=== PATIENT | male | born 1985 | race African-American/Black ===

== ENCOUNTER 2017-03-18 06:52 | Day surgery (SDC) | payer MEDICAID ==
[~2017-03-18] VITALS: Ht 180.3 cm; Wt 99.8 kg
[2017-03-18] MEDS ORDERED: MIDAZOLAM 2 MG/2 ML VIAL ONE (10:44)
[2017-03-18] MEDS ORDERED: LIDOCAINE 2% 100 MG/5 ML UJET TP ONE (10:44)
[2017-03-18] MEDS ORDERED: fentaNYL 0.05 MG/ML VIAL ONE (10:44)
[2017-03-18] MEDS ORDERED: FAMO-90 PO (11:11)
[2017-03-18] MEDS ORDERED: VITA400T14 GT (11:11)
[2017-03-18] MEDS ORDERED: DIT5 PO (11:11)
[2017-03-18] MEDS ORDERED: ASPI81CT89 PO (11:11)
[2017-03-18] MEDS ORDERED: GABA400C PO (11:11)
[2017-03-18] MEDS ORDERED: ATOR20TA PO (11:11)
[2017-03-18] MEDS ORDERED: CALC500T19 PO (11:11)
[2017-03-18] MEDS ORDERED: fentaNYL 0.05 MG/ML VIAL IVP ONE (12:55)
[2017-03-18] MEDS ORDERED: MIDAZOLAM 2 MG/2 ML VIAL IVP ONE (12:55)
== END 2017-03-18 12:47 | disposition home or self-care (01) ==
LOC: MDS 06:52 → MMU 07:03 → MDS 12:47
PROVIDERS: ATTEND Internal Medicine Gastroenterology
DX: K62.5 Hemorrhage of anus and rectum (principal); K29.70 Gastritis, unspecified, without bleeding; E66.9 Obesity, unspecified; Z79.82 Long term (current) use of aspirin; Z98.890 Other specified postprocedural states; Z79.899 Other long term (current) drug therapy
CPT/HCPCS: 36415; 43239; 45380; 86677; J2250; J3010

== ENCOUNTER 2017-04-07 19:21 | Emergency (ER) | payer MEDICAID ==
[~2017-04-07] VITALS: Ht 180.3 cm; Wt 99.8 kg
[~2017-04-07 19:21] MED LIST: ASPI81CT89 PO; ATOR20TA PO; CALC500T19 PO; DIT5 PO; FAMO-90 PO; GABA400C PO; VITA400T14 GT
[2017-04-07 19:33] VITALS: BP 110/59
--- NOTE | 2017-04-07 19:40 | NUR ---
to lobby.a/w bed, vss ermd noted. for xray left ankle and knee
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
--- NOTE | 2017-04-07 21:43 | NUR ---
TO ER BED 2
--- NOTE | 2017-04-07 21:50 | NUR ---
Patient being evaluated by physician at bedside.
--- NOTE | 2017-04-07 22:01 | NUR ---
Patient discharged with v/s stable. Written and verbal after care instructions given and explained. Patient alert, oriented and verbalized understanding of instructions. Wheel Chair Assisted with by caregiver. All questions addressed prior to discharge. ID band removed. Patient advised to follow up with PMD. Rx of MOTRIN 800MG given. Patient educated on indication of medication including possible reaction and side effects. Opportunity to ask questions provided and answered.
[2017-04-07 22:02] VITALS: BP 114/62
== END 2017-04-07 22:02 | disposition home or self-care (01) ==
LOC: MED 19:21
DX: S80.02XA Contusion of left knee, initial encounter (principal); Z79.899 Other long term (current) drug therapy; Z79.82 Long term (current) use of aspirin; W22.01XA Walked into wall, initial encounter; Y93.02 Activity, running; Y92.89 Other specified places as the place of occurrence of the external cause; Y99.8 Other external cause status
CPT/HCPCS: 73562; 73610; 99284

== ENCOUNTER 2019-01-17 11:53 | Emergency (ER) | payer MEDICAID ==
[~2019-01-17] VITALS: Ht 180.3 cm; Wt 99.8 kg
[~2019-01-17 11:53] MED LIST changes: +ASPI-1718 PO; -ASPI81CT89 PO
[2019-01-17 12:01] VITALS: BP 144/100
[2019-01-17 14:12] LABS: BASOPHILS % (AUTO) 0.3 % (0.0-2.0); EOSINOPHILS # (AUTO) 0.1 K/uL (0-0.4); EOSINOPHILS % (AUTO) 1.2 % (0.0-4.0); HEMATOCRIT 37.6 % (36-52); LYMPHOCYTES # (AUTO) 1.4 K/uL (2.0-11.5); LYMPHOCYTES % (AUTO) 18.8 % (20.5-51.1); MEAN CORPUSCULAR HEMOGLOBIN 27 pg (27-31); MEAN CORPUSCULAR HGB CONC 32 g/dL (33-37); MEAN CORPUSCULAR VOLUME 84.6 fL (80-94); MONOCYTES # (AUTO) 0.7 K/uL (0.8-1.0); MONOCYTES % (AUTO) 9.8 % (1.7-9.3); NEUTROPHILS # (AUTO) 5.3 K/uL (1.8-7.7); NEUTROPHILS % (AUTO) 69.9 % (42.2-75.2); PLATELET COUNT (AUTO) 273 K/uL (140-450); RED BLOOD CELL COUNT(AUTO) 4.45 MIL/uL (4.20-6.10); RED CELL DISTRIBUTION WIDTH 13.9 % (11.6-13.7); WHITE BLOOD COUNT (AUTO) 7.6 K/uL (4.8-10.8)
[2019-01-17 14:28] LABS: ANION GAP 18.1 (8-16); CREATININE 0.6 mg/dL (0.7-1.3); POTASSIUM 4.1 mmol/L (3.5-5.1)
[2019-01-17 14:29] LABS: PROTHROMBIN TIME 12.1 secs (10.8-13.4)
[2019-01-17 14:33] LABS: ALBUMIN 3.7 g/dL (3.4-5.0); TOTAL BILIRUBIN 0.8 mg/dL (0.0-1.0)
[2019-01-17 16:03] VITALS: BP 125/78
== END 2019-01-17 15:45 | disposition short-term general hospital (02) ==
LOC: MED 11:53
DX: S06.300A Unspecified focal traumatic brain injury without loss of consciousness, initial encounter (principal); G82.50 Quadriplegia, unspecified; I10 Essential (primary) hypertension; E27.9 Disorder of adrenal gland, unspecified; Z79.82 Long term (current) use of aspirin; Z79.899 Other long term (current) drug therapy; Y04.0XXA Assault by unarmed brawl or fight, initial encounter; Y93.89 Activity, other specified; Y92.148 Other place in prison as the place of occurrence of the external cause; Y99.8 Other external cause status
CPT/HCPCS: 36415; 70450; 71250; 72125; 80053; 84484; 85025; 85610; 85730; 93005; 99284; 99285